=== PATIENT | male | born 1975 | race Caucasian/White ===

== ENCOUNTER 2021-07-13 18:10 | Emergency (ER) | payer MEDICARE, OTHER ==
[~2021-07-13] VITALS: Ht 185.4 cm; Wt 95.5 kg
[2021-07-13 18:15] VITALS: TEMP 97.6
[2021-07-13 18:51] LABS: COLLECTION METHOD CLEAN CATCH
[2021-07-13 18:57] LABS: BASO # 0.1 K/mm3 (0.0-0.2); BASO % 0.8 % (0.0-2.0); EOS # 0.1 K/mm3 (0.0-0.7); EOS % 1.1 % (0-4.0); GRAN # 5.4 K/mm3 (1.4-6.5); GRAN % 68.9 % (42.2-75.2); HEMATOCRIT 42.8 % (42.0-52.0); HEMOGLOBIN 14.3 g/dl (13.5-18.0); LYMPH # 1.5 K/mm3 (1.2-3.4); LYMPH % 18.9 % (20.0-51.0); MEAN CELL VOLUME 89 fl (80.0-100.0); MEAN CORPUSCULAR HEMOGLOBIN 30 pg (27.0-31.0); MEAN CORPUSCULAR HGB CONC 33 g/dl (33.0-37.0); MEAN PLATELET VOLUME 9.4 fl (7.4-10.4); MONO # 0.8 K/mm3 (0.1-0.6); MONO % 10.2 % (1.7-9.3); PLATELET COUNT 339 K/mm3 (130-400); RED BLOOD COUNT 4.82 M/mm3 (4.20-5.60); REDCELL DISTRIBUTION WIDTH-CV 12.4 % (11.5-14.5)
[2021-07-13 19:02] LABS: PH 6 (5-8); SQUAMOUS EPITHELIAL None Seen /hpf; URINE APPEARANCE Clear; URINE BACTERIA None Seen /hpf; URINE BILIRUBIN Negative (NEGATIVE); URINE BLOOD Negative (NEGATIVE); URINE COLOR Yellow; URINE GLUCOSE Negative (NEGATIVE); URINE KETONE Negative (NEGATIVE); URINE LEUKOCYTE ESTERASE 1+ (NEGATIVE); URINE NITRATE Negative (NEGATIVE); URINE PROTEIN(semi-quant) Negative (NEGATIVE); URINE RBC 0-2 /hpf; URINE UROBILINOGEN Negative (NEGATIVE)
[2021-07-13 19:15] LABS: ALBUMIN 4.4 gm/dL (3.5-5.0); BILIRUBIN,TOTAL 0.4 mg/dL (0.2-1.2); C-REACTIVE PROTEIN 0.08 mg/dL (0.00-0.50); CREATININE, serum 0.87 mg/dL (0.72-1.25); TOTAL PROTEIN 7.5 gm/dL (6.2-8.1)
[2021-07-13] MEDS ORDERED: PERCOCET 325 MG1 TA2 PO (19:29)
[2021-07-13] MEDS ORDERED: OMNICEF 300MG300 MG PO (19:29)
[2021-07-13 20:37] VITALS: BP 135/76; PULSE 86
== END 2021-07-13 20:37 | disposition home or self-care (01) ==
LOC: COL.ER 18:10
PROVIDERS: Family Medicine
DX: N39.0 Urinary tract infection, site not specified (principal); I10 Essential (primary) hypertension
CPT/HCPCS: J0696; J1885; J2270; J2405; J7120